=== PATIENT | male | born 1955 | race Two or more races ===

== ENCOUNTER 2023-09-03 08:24 | Outpatient (CLI) | payer OTHER | END 2023-09-03 08:27 | disposition home or self-care (01) | LOC: NUCLEAR 08:24 | PROVIDERS: ATTEND Internal Medicine | DX: I25.119 Atherosclerotic heart disease of native coronary artery with unspecified angina pectoris (principal); I35.0 Nonrheumatic aortic (valve) stenosis ==

== ENCOUNTER 2025-07-29 19:50 | Emergency (ER) | payer OTHER ==
[~2025-07-29] VITALS: Ht 165.1 cm; Wt 74.8 kg
[2025-07-29] MEDS ORDERED: CARDIZEM30 MG PO (21:09)
[2025-07-29] MEDS ORDERED: KETOROLAC TROMETHAMINE 30 MG VIAL IM ONE (22:00)
[2025-07-29] MEDS ORDERED: DEXAMETHASONE SODIUM PHOSPHATE 4 MG/ML VIAL IM ONE (22:00)
[2025-07-29] MEDS ORDERED: DEXAMETHASONE SODIUM PHOSPHATE 4 MG/ML VIAL ONE (22:06)
[2025-07-29] MEDS ORDERED: KETOROLAC TROMETHAMINE 30 MG VIAL ONE (22:06)
[2025-07-30] MEDS ORDERED: DEXAMETHASONE4 MG PO (00:44)
[2025-07-30] MEDS ORDERED: IBU600 MG PO (00:44)
== END 2025-07-30 01:03 | disposition home or self-care (01) ==
LOC: ER 19:51
DX: S89.82XA Other specified injuries of left lower leg, initial encounter (principal); W19.XXXA Unspecified fall, initial encounter; Y93.89 Activity, other specified; Y92.89 Other specified places as the place of occurrence of the external cause; Y99.8 Other external cause status; I10 Essential (primary) hypertension